=== PATIENT | male | born 1950 | race Caucasian/White ===

== ENCOUNTER → 2020-09-07 | Outpatient (CLI) | payer OTHER ==
[~2020-09-07] MED LIST: ALEVE220 M1 PO; ALEVE220 MG PO; ELIQUIS2.5 MG PO; FERROUS SULFAT325 MG PO; HYDROCHLOROTHIA25 MG PO; HYDROCODON-ACE1 EAC4 PO; NORVASC 5 MG TAB5 MG PO; PERCOCET 10-321 EACH PO; PROSCAR5 MG PO; TENORMIN 25 MG25 MG PO; VITAMIN D31250 MCG PO
[2020-09-07 11:24] LABS: HEMOGLOBIN 12.8 gm/dl (14.0-17.5); RED BLOOD COUNT 4.91 M/UL (4.20-5.50); WHITE BLOOD COUNT 7.3 K/UL (4.5-11.0)
[2020-09-07 12:32] LABS: BUN/CREATININE RATIO 20 (0-10)
== END ==
LOC: OPSV2 10:29
PROVIDERS: Orthopaedic Surgery
DX: Z01.818 Encounter for other preprocedural examination (principal); G56.01 Carpal tunnel syndrome, right upper limb
CPT/HCPCS: 36415; 80048; 85025; 93005

== ENCOUNTER → 2020-09-16 | Day surgery (SDC) | payer OTHER ==
[~2020-09-16] VITALS: Ht 160 cm; Wt 121.6 kg
== END | disposition home or self-care (01) ==
LOC: OR 05:59
DX: G56.03 Carpal tunnel syndrome, bilateral upper limbs (principal); F40.240 Claustrophobia; Z20.822 Contact with and (suspected) exposure to COVID-19; I11.9 Hypertensive heart disease without heart failure; Z87.891 Personal history of nicotine dependence; K21.9 Gastro-esophageal reflux disease without esophagitis; E66.01 Morbid (severe) obesity due to excess calories; D64.9 Anemia, unspecified; Z96.651 Presence of right artificial knee joint
CPT/HCPCS: J0690; J1100; J2001; J2250; J2405; J2704; J3010; J7120